=== PATIENT | female | born 1960 | race Caucasian/White ===

== ENCOUNTER 2020-05-17 13:44 | Inpatient (IN) ==
[2020-05-17] MEDS ORDERED: Aspirin 325 MG TABLET PO ONE (15:42)
[2020-05-17] MEDS ORDERED: Acetaminophen 325 MG TABLET PO PRN (15:43)
[2020-05-17] MEDS ORDERED: *HR* Promethazine 25 MG/ML VIAL IVP PRN (15:43)
[2020-05-17] MEDS ORDERED: Dexamethasone 10 MG/ML VIAL IVP SCH (15:45)
[2020-05-17] MEDS ORDERED: Ipratropium/Albuterol Neb 3 ML IH SCH (16:00)
[2020-05-17] MEDS ORDERED: Tiotropium 18 MCG inhalation IH SCH (16:00)
[2020-05-17] MEDS: Cefepime HCl 2,000 MG in Water for inj. (sterile) 20 ML IVP SCH ×2 (16:38→23:04)
[2020-05-17] MEDS: MethylPREDNISolone 40 MG/ML VIAL IVP SCH ×2 (16:38→23:05)
[2020-05-17] MEDS ORDERED: Isovue-370 500 ML BOTTLE IVP ONE (16:47)
[2020-05-17] MEDS: Loratadine 10 MG TABLET PO SCH (17:15)
[2020-05-17] MEDS: Nicotine 21 MG PATCH.TD24 TD SCH (17:15)
[2020-05-17] MEDS: Ipratropium 1 PUFF INHALER IH SCH ×3 (17:23→23:24)
[2020-05-17] MEDS ORDERED: *HR* Heparin 5,000 UNIT/ML VIAL IVP PRN ×4 (20:20→23:07)
[2020-05-17] MEDS ORDERED: Heparin 25,000 UNIT/250 ML D5W 25,000 UNIT/250 ML IV.SOLN IVC SCH ×2 (20:30→23:15)
[2020-05-17] MEDS ORDERED: Vancomycin 1,750 MG/517.5 ML IV.SOLN IVPB SCH (21:00)
[2020-05-17 21:29] LABS: Amphetamine Screen,Urine Negative ng/mL (Cutoff=1000); Barbiturate Screen,Urine Negative ng/mL (Cutoff=200); Benzodiazepines Screen,Urine Negative ng/mL (Cutoff=200); Cannabinoid Screen,Urine Negative ng/mL (Cutoff = 50); Cocaine Screen,Urine Negative ng/mL (Cutoff= 300); Opiate Screen,Urine Negative ng/mL (Cutoff=300); Phencyclidine Screen,Urine Negative ng/mL (Cutoff=25)
[2020-05-17 21:32] LABS: Hematocrit 41.3 % (35.3-44.9); Hemoglobin 12.5 g/dL (11.5-15.4); Mean Corpuscular HGB Conc 30.3 g/dL (31.6-35.5); Mean Corpuscular Hemoglobin 27.1 pg (28.0-33.3); Mean Corpuscular Volume 89.4 fL (83.0-100.0); Mean Platelet Volume 9.2 fL (9.4-12.4); Platelet Count 393 K/mcL (140-400); Red Blood Count 4.62 M/mcL (3.82-4.97); Red Cell Distribution Width 14.5 % (11.5-14.5)
[2020-05-17 21:32] LABS: VBG HCO3 30 mEq/L (21-27); VBG PCO2 62 mmHg (41-51); VBG PH 7.29 pH Units (7.32-7.42); VBG PO2 161 mmHg (25-50)
[2020-05-17 21:39] LABS: Bilirubin,Urine Negative (Negative); Blood,Urine Trace (Negative); Clarity,Urine Clear (Clear); Color,Urine Yellow (Yellow); Glucose,Urine (UA) Normal (Normal); Ketones,Urine Trace mg/dL (Negative); Leukocyte Esterase,Urine Negative (Negative); Mucus,Urine Few per lpf (None-Few); Nitrite,Urine Negative (Negative); PH,Urine 6.5 pH Units (5.0-8.0); Protein,Urine 50 mg/dL (Neg-Trace); Specific Gravity,Urine > 1.030 (1.010-1.025); Squamous Epithelial Cell,Urine Few per hpf (None-Few); Urobilinogen,Urine Normal (Normal); WBC,Urine 0-3 per hpf (0-3)
[2020-05-17 21:40] LABS: Heparin anti-factor XA UFH 0.29 IU/mL (0.30-0.70); INR 1.2; Prothrombin Time 13.3 Seconds (9.4-12.1)
[2020-05-17] MEDS ORDERED: Budesonide/Formoterol 160/4.5 1 PUFF INH IH SCH (22:00)
[2020-05-18] MEDS: Ipratropium 1 PUFF INHALER IH SCH ×6 (03:35→23:41)
[2020-05-18] MEDS ORDERED: *HR* Enoxaparin 40 MG/0.4 ML SYRINGE SQ SCH (06:00)
[2020-05-18 07:11] LABS: Hematocrit 36.1 % (35.3-44.9); Hemoglobin 11.1 g/dL (11.5-15.4); Mean Corpuscular HGB Conc 30.7 g/dL (31.6-35.5); Mean Corpuscular Hemoglobin 27.3 pg (28.0-33.3); Mean Corpuscular Volume 88.7 fL (83.0-100.0); Mean Platelet Volume 9.3 fL (9.4-12.4); Platelet Count 389 K/mcL (140-400); Red Blood Count 4.07 M/mcL (3.82-4.97); Red Cell Distribution Width 14.6 % (11.5-14.5); White Blood Count 14.7 K/mcL (4.3-11.1)
[2020-05-18 07:31] LABS: BUN/Creatinine Ratio 47 (6-26); Blood Urea Nitrogen 22 mg/dL (8-23); Calcium 9.3 mg/dL (8.6-10.3); Carbon Dioxide 30 mEq/L (23-29); Chloride 103 mEq/L (98-107); Glucose 114 mg/dL (70-105); Magnesium 2.3 mg/dL (1.6-2.6); Osmolality,Calculated 288 (280-300); Phosphorous 2.5 mg/dL (2.7-4.5); Potassium 5.1 mEq/L (3.5-5.1); Sodium 137 mEq/L (136-145); Troponin I 0.11 ng/mL (< 0.04); eGFR For African Americans > 60 (> 60); eGFR For Non-African Americans > 60 (> 60)
[2020-05-18] MEDS: Loratadine 10 MG TABLET PO SCH (08:04)
[2020-05-18] MEDS: Aspirin 81 MG TAB.CHEW PO SCH (08:05)
[2020-05-18] MEDS: Cefepime HCl 2,000 MG in Water for inj. (sterile) 20 ML IVP SCH ×3 (08:05→23:25)
[2020-05-18] MEDS: Nicotine 21 MG PATCH.TD24 TD SCH (08:05)
[2020-05-18] MEDS: MethylPREDNISolone 40 MG/ML VIAL IVP SCH ×3 (08:05→23:24)
[2020-05-18 08:46] LABS: VBG HCO3 32 mEq/L (21-27); VBG PCO2 57 mmHg (41-51); VBG PH 7.35 pH Units (7.32-7.42); VBG PO2 228 mmHg (25-50)
[2020-05-18] MEDS ORDERED: Azithromycin 500 MG in 0.9 % Sodium Chloride 250 ML IVPB SCH (10:00)
[2020-05-18] MEDS ORDERED: Furosemide 20 MG/2 ML VIAL IVP ONE (11:24)
[2020-05-18] MEDS ORDERED: lisinopriL 20 MG TABLET PO SCH (11:30)
[2020-05-19] MEDS: Ipratropium 1 PUFF INHALER IH SCH ×5 (04:06→19:59)
[2020-05-19] MEDS: *HR* Enoxaparin 40 MG/0.4 ML SYRINGE SQ SCH (05:17)
[2020-05-19 07:03] LABS: Hematocrit 35.9 % (35.3-44.9); Hemoglobin 11.3 g/dL (11.5-15.4); Mean Corpuscular HGB Conc 31.5 g/dL (31.6-35.5); Mean Corpuscular Hemoglobin 27.6 pg (28.0-33.3); Mean Corpuscular Volume 87.8 fL (83.0-100.0); Mean Platelet Volume 9.1 fL (9.4-12.4); Platelet Count 416 K/mcL (140-400); Red Blood Count 4.09 M/mcL (3.82-4.97); Red Cell Distribution Width 14.2 % (11.5-14.5); White Blood Count 13.4 K/mcL (4.3-11.1)
[2020-05-19 07:23] LABS: BUN/Creatinine Ratio 50 (6-26); Blood Urea Nitrogen 27 mg/dL (8-23); Carbon Dioxide 34 mEq/L (23-29); Chloride 101 mEq/L (98-107); Glucose 115 mg/dL (70-105); Osmolality,Calculated 294 (280-300); Potassium 4.4 mEq/L (3.5-5.1); Sodium 139 mEq/L (136-145); eGFR For African Americans > 60 (> 60); eGFR For Non-African Americans > 60 (> 60)
[2020-05-19] MEDS: cefTRIAXone 2,000 MG in Water for inj. (sterile) 20 ML IVP SCH (08:52)
[2020-05-19] MEDS: Azithromycin 250 MG TABLET PO SCH ×2 (08:53→09:37)
[2020-05-19] MEDS: predniSONE 20 MG TABLET PO SCH (08:53)
[2020-05-19] MEDS: Aspirin 81 MG TAB.CHEW PO SCH ×2 (08:54→09:37)
[2020-05-19] MEDS: Furosemide 20 MG/2 ML VIAL IVP SCH ×3 (08:54→17:06)
[2020-05-19] MEDS: Loratadine 10 MG TABLET PO SCH (08:54)
[2020-05-19] MEDS: lisinopriL 20 MG TABLET PO SCH (12:08)
[2020-05-19] MEDS: Nicotine 21 MG PATCH.TD24 TD SCH (12:17)
[2020-05-20] MEDS: Ipratropium 1 PUFF INHALER IH SCH ×5 (00:42→15:47)
[2020-05-20 04:44] LABS: Hematocrit 38.1 % (35.3-44.9); Hemoglobin 12.2 g/dL (11.5-15.4); Mean Corpuscular Hemoglobin 27.4 pg (28.0-33.3); Mean Corpuscular Volume 85.4 fL (83.0-100.0); Mean Platelet Volume 8.6 fL (9.4-12.4); Platelet Count 441 K/mcL (140-400); Red Blood Count 4.46 M/mcL (3.82-4.97); Red Cell Distribution Width 13.8 % (11.5-14.5); White Blood Count 13.1 K/mcL (4.3-11.1)
[2020-05-20 05:01] LABS: BUN/Creatinine Ratio 51 (6-26); Blood Urea Nitrogen 21 mg/dL (8-23); Calcium 8.6 mg/dL (8.6-10.3); Carbon Dioxide 38 mEq/L (23-29); Chloride 95 mEq/L (98-107); Glucose 91 mg/dL (70-105); Osmolality,Calculated 291 (280-300); Potassium 3.8 mEq/L (3.5-5.1); Sodium 139 mEq/L (136-145); eGFR For African Americans > 60 (> 60); eGFR For Non-African Americans > 60 (> 60)
[2020-05-20] MEDS: *HR* Enoxaparin 40 MG/0.4 ML SYRINGE SQ SCH (06:21)
[2020-05-20 08:01] LABS: ABG Base Excess 2 mEq/L (-2 to 3); ABG HCO3 31 mEq/L (21-27); ABG Oxygen Saturation 67 % (95-98); ABG PCO2 70 mmHg (35-45); ABG PH 7.25 pH Units (7.32-7.45); ABG PO2 42 mmHg (85-104); ABG TCO2 33 mEq/L (20-26)
[2020-05-20] MEDS ORDERED: Perflutren Lipid Microsphere 1.3 ML in 0.9 % Sodium Chloride 8.7 ML IVP ONE (08:18)
[2020-05-20] MEDS: cefTRIAXone 2,000 MG in Water for inj. (sterile) 20 ML IVP SCH (08:25)
[2020-05-20] MEDS: predniSONE 20 MG TABLET PO SCH (08:25)
[2020-05-20] MEDS: Furosemide 20 MG/2 ML VIAL IVP SCH ×2 (08:25→16:40)
[2020-05-20] MEDS: lisinopriL 20 MG TABLET PO SCH (08:25)
[2020-05-20] MEDS: Azithromycin 250 MG TABLET PO SCH (08:25)
[2020-05-20] MEDS: Nicotine 21 MG PATCH.TD24 TD SCH (08:25)
[2020-05-20] MEDS: Loratadine 10 MG TABLET PO SCH (08:26)
[2020-05-20] MEDS: Aspirin 81 MG TAB.CHEW PO SCH (08:26)
[2020-05-20 16:26] VITALS: BP 111/78
== END 2020-05-20 18:27 | disposition home health service (06) | DRG 720 ==
LOC: 2NENU → ICNU 05-19 23:36 → 3BNU 05-20 10:11
PROVIDERS: ADMIT Internal Medicine; ATTEND Internal Medicine